=== PATIENT | male | born 1970 | race Two or more races ===

== ENCOUNTER 2021-09-27 22:10 | Emergency (ER) | payer SELFPAY ==
[~2021-09-27] VITALS: Ht 172.7 cm; Wt 73.5 kg
--- NOTE | 2021-09-27 22:28 | NUR ---
MARIA G 6 C/O FOUND LAYING IN THE STREET WITH DRUG PIPE IN POCKET PATIENT NOT ASNWERING STAFF QUESTIONS. PATIENT A/O X 1-2, TAKEN TO ER BED 15. PATIENT CONNECTED TO IMPREGNATOR ELECTROLYTIC CAPACITORS AND POX. SITTER AT BEDSIDE, WILL CONTINUE TO MONITOR.
--- NOTE | 2021-09-28 04:30 | NUR ---
patient a, ox3. verbally responsive. provided us with his name and his . ambulatory with steady gaits. po intake tolerated well. aware
--- NOTE | 2021-09-28 05:31 | NUR ---
patient is medically stable for d/c per MD. samuels, ox4. reported felling well and willing to leave. denied SI/HI. patient has proper cloths on. was provided with water and a sandwich. Patient discharged in stable condition. Written and verbal after care instructions given. Patient verbalizes understanding of instruction.
[2021-09-28 05:32] VITALS: BP 111/63
== END 2021-09-28 05:33 | disposition home or self-care (01) ==
LOC: ER 22:12 → EDBD 22:12 → ER 09-28 05:33
DX: F19.129 Other psychoactive substance abuse with intoxication, unspecified (principal); M54.2 Cervicalgia; R51.9 Headache, unspecified
CPT/HCPCS: 70450-TC; 72125-TC